=== PATIENT | male | born 1940 ===

== ENCOUNTER 2022-11-14 13:19 | Inpatient (IN) | payer MEDICARE ==
[~2022-11-14] VITALS: Ht 185.4 cm; Wt 90.0 kg
[2022-11-14 14:06] LABS: BASOPHILS % (AUTO) 0.2 % (0-1); EOSINOPHILS # (AUTO) 0.1 X10'3 (0-0.9); EOSINOPHILS % (AUTO) 0.9 % (0-6); HEMATOCRIT 37.7 % (42.0-52.0); HEMOGLOBIN 12.4 g/dl (14.0-17.9); LYMPHOCYTES # (AUTO) 1.2 X10'3 (1.1-4.8); LYMPHOCYTES % (AUTO) 9.5 % (21-51); MEAN CORPUSCULAR VOLUME 96.9 FL (78-98); MEAN PLATELET VOLUME 9.7 FL (7.4-10.4); MONOCYTES # (AUTO) 1.2 X10'3 (0-0.9); MONOCYTES % (AUTO) 9.2 % (2-12); NEUTROPHILS # (AUTO) 10.1 X10'3 (1.8-7.7); NEUTROPHILS % (AUTO) 80.2 % (42-75); PLATELET COUNT 327 X10'3 (140-440); RED BLOOD COUNT 3.89 X10'6 (4.70-6.10); RED CELL DISTRIBUTION WIDTH 14.3 % (11.5-14.5); WHITE BLOOD COUNT 12.6 X10'3 (4.5-11.0)
[2022-11-14 14:09] LABS: APTT 39 SECONDS (22-32); D-DIMER 0.63 MG/L FEU (0-0.50); INR 1.4 INR; PROTHROMBIN TIME 14.8 SECONDS (9.0-12.0)
[2022-11-14 14:13] LABS: ALANINE AMINOTRANSFERASE 45 U/L (12-78); ALBUMIN/GLOBULIN RATIO 0.7 (1.1-1.5); ALKALINE PHOSPHATASE 78 IU/L (46-116); ANION GAP 10 (8-16); ASPARTATE AMINO TRANSFERASE 31 U/L (10-37); BILIRUBIN,TOTAL 0.7 MG/DL (0.1-1.0); BLOOD UREA NITROGEN 52 MG/DL (7-18); BUN/CREATININE RATIO 29.9 (10.0-20.0); CALCIUM 9.1 MG/DL (8.5-10.1); CHLORIDE 103 MMOL/L (99-107); CREATININE 1.74 MG/DL (0.60-1.10); POTASSIUM 4.4 MMOL/L (3.5-5.1); SODIUM 134 MMOL/L (135-145); TOTAL CARBON DIOXIDE 20.9 MMOL/L (24-32); TOTAL PROTEIN 7.1 G/DL (6.4-8.2); eCRCL 36 ML/MIN; eGFR 38 ML/MIN
[2022-11-14 14:19] LABS: C-REACTIVE PROTEIN 4.43 MG/DL (0.0-0.5); MAGNESIUM 2.3 MG/DL (1.5-2.4); PRO BRAIN NATRIURETIC PEPTIDE 19819 PG/ML (0-450)
[2022-11-14 14:20] LABS: GLUCOSE 140 MG/DL (70-104)
[2022-11-14 15:22] LABS: TOTAL CELLS COUNTED 100
[2022-11-14 15:23] LABS: LARGE PLATELETS FEW; PLATELET ESTIMATE NORMAL
[2022-11-14] MEDS ORDERED: diltiazem-NS 100mg/100ml 100 ML IV PRN (18:25)
[2022-11-14] MEDS ORDERED: diltiazem 5mg/ml 5ml inj. IV ONE (18:25)
[2022-11-14] MEDS ORDERED: iohexol 350MG/ML 100ml bottle IV ONE (18:48)
[2022-11-14] MEDS ORDERED: ondansetron/PF 4mg/2ml inj IV PRN (20:30)
[2022-11-14] MEDS ORDERED: potassium Cl 20 mEq SR tablet PO PRN ×2 (20:30)
[2022-11-14] MEDS ORDERED: magnesium hydroxide 30ml (MOM) UD suspension PO PRN (20:30)
[2022-11-14] MEDS ORDERED: PERFLUTREN PROTEIN-A MICROSPHR (Optison) 0.22 MG/ML 3ML VIAL IV ONE (20:30)
[2022-11-14] MEDS ORDERED: magnesium 2GM in 50ml NS 50 ML IV PRN (20:30)
[2022-11-14] MEDS ORDERED: magnesium 4gm in 100ml NS 100 ML IV PRN (20:30)
[2022-11-14] MEDS ORDERED: acetaminophen 325mg tablet PO PRN (20:30)
[2022-11-14] MEDS ORDERED: magnesium Cl slow-release 64mg tablet PO PRN (20:30)
[2022-11-14] MEDS ORDERED: potassium Cl 40MEQ/1/2NS 520ml 520 ML IV PRN (20:30)
[2022-11-14] MEDS ORDERED: mag hydrox/Alum hydrox/simeth 30ml oral suspension PO PRN (20:30)
[2022-11-14] MEDS ORDERED: dexamethasone inj 6 MG in normal saline 50ml IV soln 50 ML IV ONE (20:35)
--- NOTE | 2022-11-14 20:44 | NUR ---
dr. hernandez informed of pts hr and bp. per dr hernandez hold the prn cardizem gtt and the one time cardizem iv push.
[2022-11-14] MEDS ORDERED: METO-395 PO (20:56)
[2022-11-14] MEDS ORDERED: DRON400T7 PO (20:56)
[2022-11-14] MEDS ORDERED: APIX5TAB3 PO (20:56)
[2022-11-14] MEDS ORDERED: APIX2.5T PO (21:26)
[2022-11-14] MEDS: apixaban 2.5mg tablet PO SCH (21:42)
[2022-11-14] MEDS: dronedarone hcl 400mg tablet PO SCH (21:42)
--- NOTE | 2022-11-15 00:14 | NUR ---
PT STATES NO CHEST PAIN AT ANY POINT TODAY.
[2022-11-15 07:53] LABS: ALANINE AMINOTRANSFERASE 36 U/L (12-78); ALBUMIN 2.5 G/DL (3.4-5.0); ALBUMIN/GLOBULIN RATIO 0.7 (1.1-1.5); ALKALINE PHOSPHATASE 68 IU/L (46-116); ANION GAP 8 (8-16); ASPARTATE AMINO TRANSFERASE 23 U/L (10-37); BILIRUBIN,TOTAL 0.5 MG/DL (0.1-1.0); BLOOD UREA NITROGEN 52 MG/DL (7-18); BUN/CREATININE RATIO 29.9 (10.0-20.0); CALCIUM 8.7 MG/DL (8.5-10.1); CHLORIDE 106 MMOL/L (99-107); CREATININE 1.74 MG/DL (0.60-1.10); GLUCOSE 144 MG/DL (70-104); MAGNESIUM 2.4 MG/DL (1.5-2.4); SODIUM 136 MMOL/L (135-145); TOTAL CARBON DIOXIDE 21.7 MMOL/L (24-32); TOTAL PROTEIN 6.2 G/DL (6.4-8.2); eCRCL 36 ML/MIN; eGFR 38 ML/MIN
[2022-11-15 07:55] LABS: BASOPHILS % (AUTO) 0.3 % (0-1); EOSINOPHILS % (AUTO) 0.1 % (0-6); HEMATOCRIT 35.3 % (42.0-52.0); HEMOGLOBIN 11.8 g/dl (14.0-17.9); LYMPHOCYTES # (AUTO) 0.8 X10'3 (1.1-4.8); LYMPHOCYTES % (AUTO) 8.4 % (21-51); MEAN CORPUSCULAR HEMOGLOBIN 32.6 PG (27.0-31.0); MEAN CORPUSCULAR HGB CONC 33.4 g/dL (33.0-36.5); MEAN CORPUSCULAR VOLUME 97.6 FL (78-98); MEAN PLATELET VOLUME 9.5 FL (7.4-10.4); MONOCYTES # (AUTO) 0.5 X10'3 (0-0.9); NEUTROPHILS % (AUTO) 86.2 % (42-75); PLATELET COUNT 308 X10'3 (140-440); RED BLOOD COUNT 3.62 X10'6 (4.70-6.10); RED CELL DISTRIBUTION WIDTH 14.5 % (11.5-14.5); WHITE BLOOD COUNT 9.3 X10'3 (4.5-11.0)
[2022-11-15] MEDS: K and/or MAG REPLACEMENT MC SCH ×2 (08:00→20:00)
[2022-11-15] MEDS ORDERED: docusate sod 100mg capsule PO SCH (08:00)
[2022-11-15] MEDS ORDERED: metoprolol succinate 25mg (24-HOUR) SR. Tablet PO SCH (08:00)
[2022-11-15] MEDS ORDERED: dexamethasone inj 6 MG in normal saline 50ml IV soln 50 ML IV SCH (08:00)
[2022-11-15] MEDS: dronedarone hcl 400mg tablet PO SCH ×2 (08:45→18:30)
[2022-11-15] MEDS: apixaban 2.5mg tablet PO SCH ×2 (08:46→19:44)
--- NOTE | 2022-11-15 11:01 | NUR ---
Echo at bedside.
[2022-11-15] MEDS ORDERED: ondansetron 4mg rapidly disintigrating tab PO PRN (13:40)
[2022-11-15 16:00] VITALS: BP 98/67; PULSE 100; RESP 16; TEMP 97.8; O2SAT 92
--- NOTE | 2022-11-15 16:18 | NUR ---
Problems reprioritized. Patient report given, questions answered & plan of care reviewed with AMANDA ROLAND.
--- NOTE | 2022-11-15 16:19 | NUR ---
Patient in room PCU 3025. I have received report from Ada ROLAND and had the opportunity to ask questions and assume patient care.
[2022-11-15] MEDS ORDERED: CefTRIAXone/D5W-Rocephin 1gm 50 ML IV SCH (17:03)
[2022-11-15 17:21] VITALS: RESP 16
[2022-11-15 18:00] VITALS: BP 94/60; PULSE 93; RESP 30; TEMP 97.8; O2SAT 95
--- NOTE | 2022-11-15 18:55 | NUR ---
patient appears stable present. Report given to Janee ROLAND
[2022-11-15 19:50] VITALS: RESP 30; O2SAT 95
[2022-11-15 21:04] VITALS: BP 94/60; PULSE 93; RESP 30; TEMP 97.8; O2SAT 95
[2022-11-15] MEDS ORDERED: Melatonin 3mg tablet PO PRN (21:10)
--- NOTE | 2022-11-15 21:10 | NUR ---
SURVEYING [employer]W [employer]ODMAN informed nurse pt is complaining of not being able to fall asleep. Nurse talked with pt who was requesting something to help him fall asleep. Nurse contacted provider Maru regarding the pt request. Provider gave order for melatonin 3mg PO QHS as needed for sleep, NRBO.
[2022-11-15 22:00] VITALS: BP 93/61; PULSE 96; RESP 26; TEMP 97.3; O2SAT 94
[2022-11-16 02:00] VITALS: PULSE 78; RESP 18
--- NOTE | 2022-11-16 06:19 | NUR ---
Patient in room PCU 3025. I have received report from polo mckeon and had the opportunity to ask questions and assume patient care.
--- NOTE | 2022-11-16 06:47 | NUR ---
Problems reprioritized. Patient report given, questions answered & plan of care reviewed with Patria ROLAND. Pt stable at shift change.
[2022-11-16 06:48] LABS: BASOPHILS % (AUTO) 0.4 % (0-1); EOSINOPHILS # (AUTO) 0.5 X10'3 (0-0.9); EOSINOPHILS % (AUTO) 4.4 % (0-6); HEMATOCRIT 34.4 % (42.0-52.0); HEMOGLOBIN 11.3 g/dl (14.0-17.9); LYMPHOCYTES # (AUTO) 1.6 X10'3 (1.1-4.8); LYMPHOCYTES % (AUTO) 13.3 % (21-51); MEAN CORPUSCULAR HEMOGLOBIN 31.8 PG (27.0-31.0); MEAN CORPUSCULAR HGB CONC 32.7 g/dL (33.0-36.5); MEAN CORPUSCULAR VOLUME 97.2 FL (78-98); MEAN PLATELET VOLUME 9.2 FL (7.4-10.4); MONOCYTES % (AUTO) 8.2 % (2-12); NEUTROPHILS % (AUTO) 73.7 % (42-75); PLATELET COUNT 320 X10'3 (140-440); RED BLOOD COUNT 3.54 X10'6 (4.70-6.10); RED CELL DISTRIBUTION WIDTH 14.8 % (11.5-14.5); WHITE BLOOD COUNT 12.2 X10'3 (4.5-11.0)
[2022-11-16 07:00] VITALS: BP 93/63; PULSE 80; RESP 21; TEMP 97.8; O2SAT 92
[2022-11-16 07:08] LABS: ALANINE AMINOTRANSFERASE 31 U/L (12-78); ALBUMIN 2.4 G/DL (3.4-5.0); ALBUMIN/GLOBULIN RATIO 0.7 (1.1-1.5); ALKALINE PHOSPHATASE 67 IU/L (46-116); ANION GAP 9 (8-16); ASPARTATE AMINO TRANSFERASE 23 U/L (10-37); BILIRUBIN,TOTAL 0.4 MG/DL (0.1-1.0); BLOOD UREA NITROGEN 56 MG/DL (7-18); BUN/CREATININE RATIO 34.1 (10.0-20.0); CALCIUM 8.6 MG/DL (8.5-10.1); CHLORIDE 106 MMOL/L (99-107); CREATININE 1.64 MG/DL (0.60-1.10); GLUCOSE 131 MG/DL (70-104); MAGNESIUM 2.3 MG/DL (1.5-2.4); SODIUM 135 MMOL/L (135-145); TOTAL CARBON DIOXIDE 20.3 MMOL/L (24-32); eCRCL 38 ML/MIN; eGFR 40 ML/MIN
[2022-11-16] MEDS: dronedarone hcl 400mg tablet PO SCH (07:30)
[2022-11-16] MEDS: K and/or MAG REPLACEMENT MC SCH ×2 (08:00→20:00)
[2022-11-16] MEDS ORDERED: metoprolol succinate 25mg (24-HOUR) SR. Tablet PO SCH (08:00)
[2022-11-16] MEDS ORDERED: normal saline 500ml IV soln 500 ML IV SCH (08:50)
[2022-11-16] MEDS: apixaban 2.5mg tablet PO SCH ×2 (08:59→19:30)
[2022-11-16] MEDS: furosemide 20 MG/2 ML vial IV SCH ×3 (09:14→20:00)
[2022-11-16] MEDS: azithromycin 250mg tablet PO SCH (17:52)
[2022-11-16 18:00] VITALS: BP 105/56; PULSE 99; RESP 23; TEMP 98; O2SAT 95
[2022-11-16] MEDS: CefTRIAXone 2gm/D5W 50ml BAG 50 ML IV SCH (18:59)
[2022-11-16 22:00] VITALS: BP 104/71; PULSE 105; RESP 21; TEMP 97.5; O2SAT 93
[2022-11-17] VITALS (9 sets, daily range): BP systolic 93–117; BP diastolic 50–70; PULSE 86–108; RESP 14–24; TEMP 97–98.2; O2SAT 91–95
--- NOTE | 2022-11-17 00:38 | NUR ---
Patricia given x1 for acute back pain. patient able to rest following this. Requested RT tmt 2300hrs. Stable at this time. Report given to Keren ROLAND Addendum: 11/17/22 at 0048 by Patria Condon RN wrong patient
--- NOTE | 2022-11-17 00:48 | NUR ---
Patient Up to BR HR 150-170 on exertion, settles back to 100"s when at rest. Briefly seen by Dr Cabrera. Records requested from amador arias. Dr Small awaiting records to be sent through with regards to future care. Patient and his are from [place] and have had alot of difficulty finding a dr in their area . catalytic case operator Shanika sauceda. staying with patient . Report given to Keren ROLAND
[2022-11-17 06:58] LABS: BASOPHILS # (AUTO) 0.1 X10'3 (0-0.2); BASOPHILS % (AUTO) 0.6 % (0-1); EOSINOPHILS # (AUTO) 0.5 X10'3 (0-0.9); EOSINOPHILS % (AUTO) 5.6 % (0-6); HEMATOCRIT 36.1 % (42.0-52.0); HEMOGLOBIN 12.1 g/dl (14.0-17.9); LYMPHOCYTES # (AUTO) 1.5 X10'3 (1.1-4.8); LYMPHOCYTES % (AUTO) 16.5 % (21-51); MEAN CORPUSCULAR HEMOGLOBIN 32.7 PG (27.0-31.0); MEAN CORPUSCULAR HGB CONC 33.6 g/dL (33.0-36.5); MEAN CORPUSCULAR VOLUME 97.2 FL (78-98); MEAN PLATELET VOLUME 9.5 FL (7.4-10.4); MONOCYTES % (AUTO) 11.3 % (2-12); NEUTROPHILS # (AUTO) 6.1 X10'3 (1.8-7.7); PLATELET COUNT 336 X10'3 (140-440); RED BLOOD COUNT 3.71 X10'6 (4.70-6.10); RED CELL DISTRIBUTION WIDTH 14.4 % (11.5-14.5); WHITE BLOOD COUNT 9.2 X10'3 (4.5-11.0)
[2022-11-17 07:13] LABS: ALANINE AMINOTRANSFERASE 37 U/L (12-78); ALBUMIN 2.7 G/DL (3.4-5.0); ALBUMIN/GLOBULIN RATIO 0.7 (1.1-1.5); ALKALINE PHOSPHATASE 69 IU/L (46-116); ANION GAP 12 (8-16); ASPARTATE AMINO TRANSFERASE 27 U/L (10-37); BILIRUBIN,TOTAL 0.4 MG/DL (0.1-1.0); BLOOD UREA NITROGEN 51 MG/DL (7-18); BUN/CREATININE RATIO 30.4 (10.0-20.0); CALCIUM 8.7 MG/DL (8.5-10.1); CHLORIDE 104 MMOL/L (99-107); CREATININE 1.68 MG/DL (0.60-1.10); GLUCOSE 117 MG/DL (70-104); MAGNESIUM 2.3 MG/DL (1.5-2.4); POTASSIUM 3.9 MMOL/L (3.5-5.1); SODIUM 139 MMOL/L (135-145); TOTAL CARBON DIOXIDE 23.4 MMOL/L (24-32); TOTAL PROTEIN 6.5 G/DL (6.4-8.2); eCRCL 37 ML/MIN; eGFR 39 ML/MIN
[2022-11-17] MEDS: furosemide 20 MG/2 ML vial IV SCH ×2 (08:00→09:58)
[2022-11-17] MEDS: K and/or MAG REPLACEMENT MC SCH ×2 (08:00→20:00)
[2022-11-17] MEDS: metoprolol succinate 25mg (24-HOUR) SR. Tablet PO SCH (08:00)
[2022-11-17] MEDS: azithromycin 250mg tablet PO SCH ×2 (09:53→09:58)
[2022-11-17] MEDS: apixaban 2.5mg tablet PO SCH ×2 (09:57→20:06)
[2022-11-17] MEDS: CefTRIAXone 2gm/D5W 50ml BAG 50 ML IV SCH (09:58)
[2022-11-17] MEDS: diltiazem 30mg tablet PO SCH ×3 (10:35→20:06)
[2022-11-17] MEDS ORDERED: diltiazem 30mg tablet PO SCH (14:00)
[2022-11-18 02:00] VITALS: BP 112/66; PULSE 102; RESP 16; TEMP 98.2; O2SAT 91
[2022-11-18] MEDS: diltiazem 30mg tablet PO SCH ×2 (02:09→08:14)
[2022-11-18 06:31] LABS: BASOPHILS # (AUTO) 0.1 X10'3 (0-0.2); EOSINOPHILS # (AUTO) 0.7 X10'3 (0-0.9); EOSINOPHILS % (AUTO) 6.3 % (0-6); HEMATOCRIT 37.5 % (42.0-52.0); HEMOGLOBIN 12.8 g/dl (14.0-17.9); LYMPHOCYTES # (AUTO) 2.3 X10'3 (1.1-4.8); MEAN CORPUSCULAR HGB CONC 34.1 g/dL (33.0-36.5); MEAN CORPUSCULAR VOLUME 96.9 FL (78-98); MEAN PLATELET VOLUME 9.4 FL (7.4-10.4); MONOCYTES # (AUTO) 1.1 X10'3 (0-0.9); MONOCYTES % (AUTO) 10.2 % (2-12); NEUTROPHILS # (AUTO) 6.3 X10'3 (1.8-7.7); NEUTROPHILS % (AUTO) 60.5 % (42-75); PLATELET COUNT 342 X10'3 (140-440); RED BLOOD COUNT 3.87 X10'6 (4.70-6.10); RED CELL DISTRIBUTION WIDTH 14.6 % (11.5-14.5); WHITE BLOOD COUNT 10.4 X10'3 (4.5-11.0)
[2022-11-18 06:46] LABS: ALANINE AMINOTRANSFERASE 36 U/L (12-78); ALBUMIN 2.8 G/DL (3.4-5.0); ALBUMIN/GLOBULIN RATIO 0.7 (1.1-1.5); ALKALINE PHOSPHATASE 76 IU/L (46-116); ANION GAP 9 (8-16); ASPARTATE AMINO TRANSFERASE 27 U/L (10-37); BILIRUBIN,TOTAL 0.4 MG/DL (0.1-1.0); BLOOD UREA NITROGEN 32 MG/DL (7-18); BUN/CREATININE RATIO 21.9 (10.0-20.0); CHLORIDE 105 MMOL/L (99-107); CREATININE 1.46 MG/DL (0.60-1.10); GLUCOSE 122 MG/DL (70-104); MAGNESIUM 2.3 MG/DL (1.5-2.4); POTASSIUM 4.1 MMOL/L (3.5-5.1); SODIUM 136 MMOL/L (135-145); TOTAL CARBON DIOXIDE 22.2 MMOL/L (24-32); TOTAL PROTEIN 6.7 G/DL (6.4-8.2); eCRCL 43 ML/MIN; eGFR 46 ML/MIN
[2022-11-18 07:15] VITALS: BP 103/64; PULSE 91; RESP 16; TEMP 97.9; O2SAT 95
[2022-11-18] MEDS: K and/or MAG REPLACEMENT MC SCH (08:00)
[2022-11-18] MEDS ORDERED: amiodarone 200mg tablet PO SCH (08:00)
[2022-11-18] MEDS: apixaban 2.5mg tablet PO SCH (08:14)
[2022-11-18] MEDS: metoprolol succinate 25mg (24-HOUR) SR. Tablet PO SCH (08:15)
[2022-11-18] MEDS: CefTRIAXone 2gm/D5W 50ml BAG 50 ML IV SCH (11:03)
[2022-11-18] MEDS: azithromycin 250mg tablet PO SCH (11:03)
[2022-11-18] MEDS ORDERED: FURO20TA4 PO (11:53)
[2022-11-18] MEDS ORDERED: AMI200T PO (11:53)
[2022-11-18] MEDS ORDERED: METO-384 PO (11:53)
[2022-11-18] MEDS ORDERED: AZI25OT PO (11:53)
--- NOTE | 2022-11-18 14:02 | NUR ---
patient seen by DR Wood is for discharge . All Dc instructions given to patient. Patient DC home to [place] via private car with in stable condition.
== END 2022-11-18 13:03 | disposition home or self-care (01) | DRG 871 ==
LOC: ER 13:19 → ED HOLD 20:32 → EDBEDREQ 11-15 15:23 → PCU 3S 11-15 15:50
PROVIDERS: ADMIT Internal Medicine; ATTEND Internal Medicine
PROC: BW241ZZ Computerized Tomography (CT Scan) of Chest and Abdomen using Low Osmolar Contrast (ICD-10-PCS; principal; 2022-11-14)
DX: A41.9 Sepsis, unspecified organism (principal); I21.4 Non-ST elevation (NSTEMI) myocardial infarction; J18.9 Pneumonia, unspecified organism; I42.9 Cardiomyopathy, unspecified; I50.20 Unspecified systolic (congestive) heart failure; I48.91 Unspecified atrial fibrillation; R59.1 Generalized enlarged lymph nodes; N18.30 Chronic kidney disease, stage 3 unspecified; Z20.822 Contact with and (suspected) exposure to COVID-19; Z79.01 Long term (current) use of anticoagulants; Z79.899 Other long term (current) drug therapy; Z87.891 Personal history of nicotine dependence
CPT/HCPCS: 36415; 71045; 71275; 80053; 83735; 83880; 84145; 84484; 85007; 85025; 85379; 85610; 85730; 86140; 87081; 87811; 93005; 93306; 97116; 97161; 97530; 99291; G0378; J0696; J1100; J1940; J3490; J7040; Q9967